=== PATIENT | female | born 1945 | race Two or more races ===

== ENCOUNTER 2023-09-29 13:26 | Emergency (ER) | payer OTHER ==
[~2023-09-29] VITALS: Ht 154.9 cm; Wt 67.2 kg
[2023-09-29 15:01] VITALS: BP 161/90; PULSE 93; RESP 16; TEMP 98.2; O2SAT 97
[2023-09-29] MEDS ORDERED: ACETAMINOPHEN 325 MG TAB PO ONE (16:30)
== END 2023-09-29 16:19 | disposition home or self-care (01) ==
LOC: ER 13:26
DX: S00.83XA Contusion of other part of head, initial encounter (principal); I10 Essential (primary) hypertension; Z88.2 Allergy status to sulfonamides; W18.12XA Fall from or off toilet with subsequent striking against object, initial encounter; Y93.89 Activity, other specified; Y92.091 Bathroom in other non-institutional residence as the place of occurrence of the external cause; Y99.8 Other external cause status
CPT/HCPCS: 70450; 70486

== ENCOUNTER 2024-09-10 11:38 | Emergency (ER) | payer OTHER ==
[~2024-09-10] VITALS: Ht 154.9 cm; Wt 62.0 kg
[2024-09-10 15:20] VITALS: BP 177/86; PULSE 53; RESP 16; TEMP 98.5; O2SAT 97
== END 2024-09-10 15:24 | disposition home or self-care (01) ==
LOC: EDBD 11:38 → ER 11:38
DX: S23.3XXA Sprain of ligaments of thoracic spine, initial encounter (principal); S43.402A Unspecified sprain of left shoulder joint, initial encounter; S73.102A Unspecified sprain of left hip, initial encounter; I12.9 Hypertensive chronic kidney disease with stage 1 through stage 4 chronic kidney disease, or unspecified chronic kidney disease; N18.30 Chronic kidney disease, stage 3 unspecified; E78.5 Hyperlipidemia, unspecified; Z88.2 Allergy status to sulfonamides; W18.09XA Striking against other object with subsequent fall, initial encounter; Y93.89 Activity, other specified; Y92.89 Other specified places as the place of occurrence of the external cause; Y99.8 Other external cause status
CPT/HCPCS: 72128; 73030; 73060; 73502; 93005

== ENCOUNTER 2025-03-10 03:00 | Inpatient (IN) | payer OTHER ==
[~2025-03-10] VITALS: Ht 154.9 cm; Wt 61.2 kg
[2025-03-10 04:06] LABS: Basophils # (auto) 0.1 10 ^3/uL (0-0.2); Eosinophils # (auto) 0.1 10 ^3/uL (0-0.8); Eosinophils % (auto) 1.5 % (0.0-7.0); Hematocrit 39.2 % (36.0-46.0); Hemoglobin 13.4 g/dL (12.2-16.2); Lymphocytes # (auto) 1.3 10 ^3/uL (0.4-5.4); Lymphocytes % (auto) 19.3 % (10.0-50.0); Mean Corpuscular Hgb Conc. 34.1 g/dL (32.0-36.0); Mean Corpuscular Volume 96.8 fL (80.0-100.0); Monocytes # (auto) 0.5 10 ^3/uL (0-1.3); Monocytes % (auto) 7.8 % (0.0-12.0); Neutrophils # (auto) 4.8 10 ^3/uL (1.6-8.6); Neutrophils % (auto) 70.4 % (37.0-80.0); Platelet Count (auto) 201 10^3/uL (140-450); Red Blood Cells 4.05 10^6/uL (4.0-5.20); Red Cell Distribution Width 15.8 % (11.8-14.3); White Blood Cell 6.8 10^3/uL (4.4-10.8)
--- NOTE | 2025-03-10 04:06 | ED.PDOC ---
History of Present Illness HPI Comments 79-year-old female keep to ER via EMS for high blood pressure. , Per , patient made have dementia. Patient has poor compliance to her doctor. Denies any medical problems. Had an argument with her earlier and she walked out. Seen by police department wandering around. Patient still appear confused at this time. She complaining of left ankle pain. Blood pressure on scene was 190'/100 mmHg. Chief Complaint: High Blood Pressure Time Seen by MD: 04:05 Primary Care Provider: NONE Reviewed Notes: Nurses Notes Allergies: Coded Allergies: Sulfa Antibiotics (Verified Allergy, Severe, 09/29/23) Information Source: Patient Mode of Arrival: EMS Severity: Moderate Timing: Hours Duration: Since onset Review of Systems REVIEW OF SYSTEMS: (+) patient confused and disoriented No fever, no chills, or fatigue HEENT: No sore throat, no earache, no congestion, no neck pain. Cardiac: No chest pain. No palpitations. Lungs: No shortness of breath, no cough. GI: No nausea, no vomiting, no diarrhea, no constipation, no abdominal pain : No dysuria, frequency, or urgency. No hematuria. Musculoskeletal: No joint pain , no joint swelling, no extremity edema. Skin: No rash, no itching. Neuro: No headache, no dizziness, no weakness Vital Signs Vital Signs Date Time Temp Pulse Resp B/P (MAP) Pulse Ox O2 Delivery O2 Flow Rate FiO2 03/10/25 04:06 79 03/10/25 03:40 98.6 10 114/61 (78) 98 98.6 03/10/25 03:25 Room Air* 0 21 Physical Exam General: Awake, alert and oriented. No acute distress. Skin: Skin in warm, dry and intact. Appropriate color for ethnicity. Nailbeds pink with no cyanosis. HEENT: The head is normocephalic and atraumatic. Conjunctivae are clear without exudates or hemorrhage. Sclera is non-icteric. EOM are intact. No signs of nystagmus. Eyelids are normal in appearance without swelling or lesions. Oral mucosa is pink and moist Neck: The neck is supple with normal range of motion. No JVD. Cardiac: Heart rate and rhythm are normal. No murmurs, gallops, or rubs are auscultated. Respiratory: No signs of respiratory distress. Lung sounds are clear in all lobes bilaterally without rales, rhonchi, or wheezes. Abdominal: Abdomen is soft, non-tender without distention. Bowel sounds are present and normoactive in all four quadrants. Extremities: Upper and lower extremities are atraumatic in appearance without deformity or edema. Neurological: The patient is awake, alert and oriented to person, only with normal speech. Speech is clear. There is no facial asymmetry. Normal ygrydy-cm-opbm test. Normal strength. Psychiatric: Appropriate mood and affect.. No visual or auditory hallucinations. Past Medical History PAST MEDICAL HISTORY: High Lipids, HTN, Thyroid Surgical History: Denies all surgeries CONTENT DEVELOPMENT MANAGER History: No Pertinent CONTENT DEVELOPMENT MANAGER History Family History Family History: Reviewed,noncontributory to illness, Unknown Social History Smoker: Non-Smoker Alcohol: Denies ETOH Use Drugs: Denies Drug Use Lives In: Home Was a procedure done? Was a procedure done?: No EKG EKG : Pulse Rate (adult): 79 [place]: LAD Cardiac Rhythm: NSR Comments No STEMI Differential Dx Considerations may include: Anemia, electrolyte imbalance, dementia, dehydration, X-Ray, Labs, Meds, VS Vital Signs Date Time Temp Pulse Resp B/P (MAP) Pulse Ox O2 Delivery O2 Flow Rate FiO2 03/10/25 04:06 79 03/10/25 03:40 98.6 71 10 114/61 (78) 98 98.6 03/10/25 03:25 Room Air* 0 21 03/10/25 03:00 98.2 90 18 190/100 (130) 97 98.2 Lab Test 03/10/25 04:23 03/10/25 03:53 03/10/25 03:50 Range/Units Urine Color Yellow Yellow Urine Clarity Clear Clear Urine pH 6.0 5.0-9.0 Urine Specific [place] 1.031 1.001-1.035 Urine Protein Trace H Negative Urine Ketones Negative Negative Urine Blood Negative Negative /uL Urine Nitrite Negative Negative Urine Bilirubin Negative Negative Urine Urobilinogen Normal Negative mg/dL Urine Leukocyte Esterase 1+ Negative /uL Urine RBC 2 0 - 4 /hpf Urine Microscopic WBC 5 0-5 /HPF Urine Squamous Epithelial Cells Few <5 /hpf Urine Bacteria None seen None Seen /hpf Urine Hyaline Casts Few 0 - 2 /lpf Urine Mucus Few None Seen Urine Glucose Normal Normal mg/dL Urine Opiates Screen Neg NEGATIVE Urine Fentanyl Screen Neg NEGATIVE Urine Barbiturates Screen Neg NEGATIVE Urine Phencyclidine Screen Neg NEGATIVE Urine Amphetamines Screen Neg NEGATIVE Urine Benzodiazepines Screen Neg NEGATIVE Urine Cocaine Screen Neg NEGATIVE Urine Cannabinoids Screen Neg NEGATIVE White Blood Count 6.8 4.4-10.8 10^3/uL Red Blood Count 4.05 4.0-5.20 10^6/uL Hemoglobin 13.4 12.2-16.2 g/dL Hematocrit 39.2 36.0-46.0 % Mean Corpuscular Volume 96.8 80.0-100.0 fL Mean Corpuscular Hemoglobin 33.0 H 28.0-32.0 pg Mean Corpuscular Hemoglobin Concent 34.1 32.0-36.0 g/dL Red Cell Distribution Width 15.8 H 11.8-14.3 % Platelet Count 201 140-450 10^3/uL Mean Platelet Volume 8.1 6.9-10.8 fL Neutrophils (%) (Auto) 70.4 37.0-80.0 % Lymphocytes (%) (Auto) 19.3 10.0-50.0 % Monocytes (%) (Auto) 7.8 0.0-12.0 % Eosinophils (%) (Auto) 1.5 0.0-7.0 % Basophils (%) (Auto) 1.0 0.0-2.0 % Neutrophils # (Auto) 4.8 1.6-8.6 10 ^3/uL Lymphocytes # (Auto) 1.3 0.4-5.4 10 ^3/uL Monocytes # (Auto) 0.5 0-1.3 10 ^3/uL Eosinophils # (Auto) 0.1 0-0.8 10 ^3/uL Basophils # (Auto) 0.1 0-0.2 10 ^3/uL Nucleated Red Blood Cells 0.0 % Sodium Level 145 136-145 mmol/L Potassium Level 3.4 L 3.5-5.1 mmol/L Chloride Level 110 H 98-107 mmol/L Carbon Dioxide Level 25 20-31 mmol/L Anion Gap 10 5-15 Blood Urea Nitrogen 19 9-23 mg/dL Creatinine 1.23 H 0.550-1.02 mg/dL Glomerular Filtration Rate Calc 45 >90 mL/min BUN/Creatinine Ratio 15.4 10.0-20.0 Serum Glucose 97 74-106 mg/dL Lactic Acid Level 1.3 0.4-2.0 mmol/L Calcium Level 10.2 8.7-10.4 mg/dL Total Bilirubin 1.0 0.2-1.0 mg/dL Aspartate Amino Transferase (AST) 17 13-40 U/L Alanine Aminotransferase (ALT) 10 7-40 U/L Alkaline Phosphatase 65 46-116 U/L Troponin I High Sensitivity 4 </=34 ng/L B-Type Natriuretic Peptide 18.51 0-100 pg/mL Total Protein 6.9 5.7-8.2 g/dL Albumin 4.7 3.2-4.8 g/dL Thyroid Stimulating Hormone (TSH) Pending Plasma/Serum Blood Alcohol < 3.0 <10 mg/dL POC Glucose 88 70-106 mg/dl Current Medications Medications (Trade) Dose Ordered Sig/Bisi Route Start Time Stop Time Status Last Admin Sodium Chloride 1,000 ml @ 1,000 mls/hr Q1H ONCE IV 03/10/25 05:30 03/10/25 06:29 03/10/25 05:23 Acetaminophen (Tylenol Tablet) 650 mg ONCE ONCE PO 03/10/25 05:30 03/10/25 05:31 DC 03/10/25 05:33 Potassium Chloride (Klor-Con Tablet) 40 meq ONCE ONCE PO 03/10/25 05:45 03/10/25 05:46 DC 03/10/25 05:52 Images Reviewed?: Images reviewed and evaluated by me (Independent interpretation: Left ankle x-ray no acute fracture) Time of 1ST Reevaluation: 03:45 Reevaluation 1ST: Unchanged Patient Education/Counseling: Diagnosis, Treatment Family Education/Counseling: No Family Present Departure 1 Departure Time of Disposition: 05:20 Impression: Primary Impression: Altered mental status Disposition: 09 ADMITTED INPATIENT Condition: Stable Comments 79-year-old female with past medical history hyperlipidemia, hypertension, thyroid disorder presents to the emergency department with altered mental status, workup reveals ROSALEE. Focal neuro deficit on exam. CT head negative for acute process. IV fluids administered in the ED. Patient admitted for further treatment, evaluation and monitoring. Extensive evaluation was performed in attempt to identify or rule out: (See differential diagnosis section) The following tests were ordered, and results were reviewed by me and discussed with patient: (See diagnostic results section) The following test were independently interpreted by me: EKG, chest x-ray I reviewed and agreed with the following test results read by other providers: Chest x-ray I reviewed the following notes from the pt's past medical encounters: Encounter 08/2024 for fall Additional information was gathered from interviewing the following independent historians: Patient's at bedside Discussion of management or test interpretation with external physician/other qualified health nanny caregiver: N/A Addressed an acute or chronic illness that poses a threat to life or bodily function: Altered mental status, Decision regarding hospitalization or escalation of hospital level of care: Risk and benefits of admission for further treatment of patient's condition was considered. Due to patient's current clinical condition, high risk of decline and poor outcome if discharged and need for further inpatient management and monitoring, patient will be admitted to the hospital. Discussed with patient. Drug therapy requiring intensive monitoring for toxicity: N/A Parenteral controlled substances: N/A Decision regarding elective major surgery with identified patient or procedure risk factors: N/A Decision regarding emergency major surgery: N/A Decision not to resuscitate or to de-escalate care because of poor prognosis: N/A Diagnosis or treatment significantly limited by social determinants of health: N/A Critical Care Note Critical Care Time?: No Stability Stability form required: No Heart Score Heart Score: Heart Score Response (Comments) Value History N/A 0 EKG N/A 0 Age N/A 0 Risk Factors N/A 0 Troponin N/A 0 Total 0 I personally scribed for DUNCAN ALLISON MD ([employer]) on 03/10/25 at 04:06. Electronically submitted by Shane Johnson ([employer]). I personally scribed for DUNCAN ALLISON MD ([employer]) on 03/10/25 at 04:07. Electronically submitted by Shane Johnson ([employer]). DUNCAN ALLISON MD Mar 10, 2025 04:06
[2025-03-10 04:23] LABS: Alanine Aminotransferase 10 U/L (7-40); Albumin 4.7 g/dL (3.2-4.8); Alkaline Phosphatase 65 U/L (46-116); Anion Gap 10 (5-15); Aspartate Aminotransferase 17 U/L (13-40); BUN/Creatinine Ratio 15.4 (10.0-20.0); Blood Urea Nitrogen 19 mg/dL (9-23); Calcium 10.2 mg/dL (8.7-10.4); Carbon Dioxide 25 mmol/L (20-31); Glucose 97 mg/dL (74-106); Sodium 145 mmol/L (136-145); Total Protein 6.9 g/dL (5.7-8.2)
[2025-03-10 04:25] LABS: Urine Bacteria None Seen /hpf (None Seen)
[2025-03-10 04:27] LABS: Chloride 110 mmol/L (98-107); Potassium 3.4 mmol/L (3.5-5.1)
[2025-03-10 04:53] LABS: Amphetamine Screen, Urine Neg (NEGATIVE); Barbiturate Scree,Urine Neg (NEGATIVE); Benzodiazephine Screen, Urine Neg (NEGATIVE); Cannabinoid Screen, Urine Neg (NEGATIVE); Cocaine Screen, Urine Neg (NEGATIVE); Opiate Scree,Urine Neg (NEGATIVE); Phencyclidine Screen, Urine Neg (NEGATIVE)
--- NOTE | 2025-03-10 04:53 | ECG ---
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
[2025-03-10 05:06] LABS: Urine Blood Negative /uL (Negative); Urine Clarity Clear (Clear); Urine Color Yellow (Yellow); Urine Hyaline Cast FEW /lpf (0 - 2); Urine Mucus FEW (None Seen); Urine Protein, UAD TRACE (Negative); Urine Specific Gravity 1.031 (1.001-1.035); Urine Squamous Epithelial Cell FEW /hpf (<5); Urine Urobilinogen Normal (Negative); Urine WBC 5 /HPF (0-5)
--- NOTE | 2025-03-10 05:09 | DVH ---
EXAM: CT HEAD WITHOUT CONTRAST INDICATION: ALOC TECHNIQUE: CT of the head without intravenous contrast. Radiation Dose : 1. Head: CT Dose: CTDI volume is 53.6 mGy. Dose-length product is 948.6 mGy*cm The dose indicators for CT are the volume Computed Tomography (CT) Dose Index (CTDIvol) and the Dose Length Product (DLP), and are measured in units of mGy and mGy-cm, respectively. These indicators are not patient dose, but values generated from the CT scanner acquisition factors. The report includes radiation exposure data for exposures received during this examination. COMPARISON: CT HEAD WITHOUT CONTRAST on DOS: 09/29/23 FINDINGS: There is no evidence of acute intracranial hemorrhage, extra-axial collection, mass effect, midline s hift, herniation or hydrocephalus. The ventricles, sulci and cisterns are age appropriate. The ledesma-white differentiation is intact. Patchy periventricular and subcortical white matter hypoattenuation is nonspecific but may be related to small vessel ischemic disease. The visualized paranasal sinuses and mastoid air cells are clear. The surrounding soft tissues and osseous structures are unremarkable. IMPRESSION: No acute intracranial abnormality.
--- NOTE | 2025-03-10 05:13 | DVH ---
EXAM: XY CHEST XRAY 1 VIEW Indication: CP Technique: Single frontal view of the chest was obtained Comparison: None FINDINGS: Lines and Tubes: None Lungs: No focal consolidation. Pleura: No effusion. No pneumothorax. Cardiomediastinal contours: Unremarkable Bones: No acute osseous abnormality. IMPRESSION: No acute cardiopulmonary disease.
[2025-03-10] MEDS: SODIUM CHLORIDE 0.9% 1,000 ML IV ONE (05:23)
[2025-03-10] MEDS: ACETAMINOPHEN 325 MG TAB PO ONE (05:33)
[2025-03-10] MEDS: POTASSIUM CHL 20 Meq TABLET PO ONE (05:52)
--- NOTE | 2025-03-10 06:05 | DVH ---
EXAM: XR Left Ankle Complete, 3 or More Views CLINICAL INDICATION: Left ankle pain TECHNIQUE: Frontal, lateral and oblique views of the left ankle. COMPARISON: None FINDINGS: BONES/JOINTS: Fixation screws of the distal fibula. SOFT TISSUES: Soft tissue swelling without acute fracture. OTHER FINDINGS: . IMPRESSION: 1. Soft tissue swelling without acute fracture. 2. If symptoms persist, further evaluation with CT is recommended.
[2025-03-10] MEDS ORDERED: ONDANSETRON HCL 4 MG/2 ML VIAL IV PRN (06:45)
[2025-03-10] MEDS ORDERED: AMLO1TAB23 PO (06:58)
[2025-03-10] MEDS ORDERED: LEVO150T10 PO (06:58)
[2025-03-10] MEDS ORDERED: ESCI1TAB36 PO (06:58)
[2025-03-10] MEDS ORDERED: ERGO1CAP12 PO (06:58)
[2025-03-10] MEDS ORDERED: PRAV20TA3 (06:58)
[2025-03-10] MEDS ORDERED: MET25T PO (06:58)
[2025-03-10] MEDS ORDERED: ERGOCALCIFEROL 50,000 UNIT(1.25MG) CAP PO SCH (07:00)
--- NOTE | 2025-03-10 07:14 | DVHHP2 ---
History of Present Illness Reason for Visit: Left heel pain History of Present Illness Lenore Caceres is a 71-year-old female with past medical history of hypertension, hyperlipidemia, dementia, thyroid disease, right hand surgery, bilateral cataract surgery who presents to the ED with left heel pain. Per reports patient's stated that she was wandering around after leaving the hotel and was found thereafter. Patient unable to tell me what happened and that period of time but she does report that they removing into a new house. Patient denies any chest pain, shortness of breath, fever, chills homelessness, weakness, dizziness, abdominal pain, nausea, vomiting, diarrhea, or urinary symptoms. Cardiovascular: HTN, hyperipidemia POLICE DISPATCHER: Dementia Endocrine: Hypothyroidism Past Surgical History: Other (Right hand surgery and bilateral cataract surgery) Family History: Other (Both parents ) Smoke: No ALCOHOL: none Drugs: None Lives: with Family Domestic Violence: Neg Review of Systems Musculoskeletal: foot pain Allergies: Coded Allergies: Sulfa Antibiotics (Verified Allergy, Severe, 09/29/23) Medications Current Medications Medications Dose Ordered Sig/Bisi Route Start Time Stop Time Status Last Admin Dose Admin Ondansetron HCl 4 mg Q4HP PRN IV 03/10/25 06:45 UNV Enoxaparin Sodium 40 mg DAILY SC 03/10/25 10:00 UNV Exam Vital Signs Vital Signs Date Time Temp Pulse Resp B/P (MAP) Pulse Ox O2 Delivery O2 Flow Rate FiO2 03/10/25 06:00 97.8 70 12 159/84 (109) 99 97.8 03/10/25 03:25 Room Air* 0 21 General Appearance: Alert, Oriented X3, Cooperative, No acute distress HEENT: Atraumatic, PERRLA, EOMI, Mucous membr. moist/pink Respiratory: Clear to auscultation, Normal air movement Cardiovascular: Regular rate, Normal S1, Normal S2, No murmurs Abdominal: Normal bowel sounds, Soft, No tenderness, No hepatospenomegaly, No masses Extremities: No clubbing, No cyanosis, Normal pulses Skin: No significant lesion Neuro: Normal speech, Normal tone, Sensation intact Psych/Mental Status: Mental status NL, Mood NL Labs/Xrays Labs Test 03/10/25 04:23 03/10/25 03:53 03/10/25 03:50 Range/Units Urine Color Yellow Yellow Urine Clarity Clear Clear Urine pH 6.0 5.0-9.0 Urine Specific [place] 1.031 1.001-1.035 Urine Protein Trace H Negative Urine Ketones Negative Negative Urine Blood Negative Negative /uL Urine Nitrite Negative Negative Urine Bilirubin Negative Negative Urine Urobilinogen Normal Negative mg/dL Urine Leukocyte Esterase 1+ Negative /uL Urine RBC 2 0 - 4 /hpf Urine Microscopic WBC 5 0-5 /HPF Urine Squamous Epithelial Cells Few <5 /hpf Urine Bacteria None seen None Seen /hpf Urine Hyaline Casts Few 0 - 2 /lpf Urine Mucus Few None Seen Urine Glucose Normal Normal mg/dL Urine Opiates Screen Neg NEGATIVE Urine Fentanyl Screen Neg NEGATIVE Urine Barbiturates Screen Neg NEGATIVE Urine Phencyclidine Screen Neg NEGATIVE Urine Amphetamines Screen Neg NEGATIVE Urine Benzodiazepines Screen Neg NEGATIVE Urine Cocaine Screen Neg NEGATIVE Urine Cannabinoids Screen Neg NEGATIVE White Blood Count 6.8 4.4-10.8 10^3/uL Red Blood Count 4.05 4.0-5.20 10^6/uL Hemoglobin 13.4 12.2-16.2 g/dL Hematocrit 39.2 36.0-46.0 % Mean Corpuscular Volume 96.8 80.0-100.0 fL Mean Corpuscular Hemoglobin 33.0 H 28.0-32.0 pg Mean Corpuscular Hemoglobin Concent 34.1 32.0-36.0 g/dL Red Cell Distribution Width 15.8 H 11.8-14.3 % Platelet Count 201 140-450 10^3/uL Mean Platelet Volume 8.1 6.9-10.8 fL Neutrophils (%) (Auto) 70.4 37.0-80.0 % Lymphocytes (%) (Auto) 19.3 10.0-50.0 % Monocytes (%) (Auto) 7.8 0.0-12.0 % Eosinophils (%) (Auto) 1.5 0.0-7.0 % Basophils (%) (Auto) 1.0 0.0-2.0 % Neutrophils # (Auto) 4.8 1.6-8.6 10 ^3/uL Lymphocytes # (Auto) 1.3 0.4-5.4 10 ^3/uL Monocytes # (Auto) 0.5 0-1.3 10 ^3/uL Eosinophils # (Auto) 0.1 0-0.8 10 ^3/uL Basophils # (Auto) 0.1 0-0.2 10 ^3/uL Nucleated Red Blood Cells 0.0 % Sodium Level 145 136-145 mmol/L Potassium Level 3.4 L 3.5-5.1 mmol/L Chloride Level 110 H 98-107 mmol/L Carbon Dioxide Level 25 20-31 mmol/L Anion Gap 10 5-15 Blood Urea Nitrogen 19 9-23 mg/dL Creatinine 1.23 H 0.550-1.02 mg/dL Glomerular Filtration Rate Calc 45 >90 mL/min BUN/Creatinine Ratio 15.4 10.0-20.0 Serum Glucose 97 74-106 mg/dL Lactic Acid Level 1.3 0.4-2.0 mmol/L Calcium Level 10.2 8.7-10.4 mg/dL Total Bilirubin 1.0 0.2-1.0 mg/dL Aspartate Amino Transferase (AST) 17 13-40 U/L Alanine Aminotransferase (ALT) 10 7-40 U/L Alkaline Phosphatase 65 46-116 U/L Troponin I High Sensitivity 4 </=34 ng/L B-Type Natriuretic Peptide 18.51 0-100 pg/mL Total Protein 6.9 5.7-8.2 g/dL Albumin 4.7 3.2-4.8 g/dL Plasma/Serum Blood Alcohol < 3.0 <10 mg/dL POC Glucose 88 70-106 mg/dl EXAM: CT HEAD WITHOUT CONTRAST INDICATION: ALOC TECHNIQUE: CT of the head without intravenous contrast. Radiation Dose : 1. Head: CT Dose: CTDI volume is 53.6 mGy. Dose-length product is 948.6 mGy*cm The dose indicators for CT are the volume Computed Tomography (CT) Dose Index (CTDIvol) and the Dose Length Product (DLP), and are measured in units of mGy and mGy-cm, respectively. These indicators are not patient dose, but values generated from the CT scanner acquisition factors. The report includes radiation exposure data for exposures received during this examination. COMPARISON: CT HEAD WITHOUT CONTRAST on DOS: 09/29/23 FINDINGS: There is no evidence of acute intracranial hemorrhage, extra-axial collection, mass effect, midline shift, herniation or hydrocephalus. The ventricles, sulci and cisterns are age appropriate. The ledesma-white differentiation is intact. Patchy periventricular and subcortical white matter hypoattenuation is nonspecific but may be related to small vessel ischemic disease. The visualized paranasal sinuses and mastoid air cells are clear. The surrounding soft tissues and osseous structures are unremarkable. IMPRESSION: No acute intracranial abnormality. EXAM: XR Left Ankle Complete, 3 or More Views CLINICAL INDICATION: Left ankle pain TECHNIQUE: Frontal, lateral and oblique views of the left ankle. COMPARISON: None FINDINGS: BONES/JOINTS: Fixation screws of the distal fibula. SOFT TISSUES: Soft tissue swelling without acute fracture. OTHER FINDINGS: . IMPRESSION: 1. Soft tissue swelling without acute fracture. 2. If symptoms persist, further evaluation with CT is recommended. EXAM: XY CHEST XRAY 1 VIEW Indication: CP Technique: Single frontal view of the chest was obtained Comparison: None FINDINGS: Lines and Tubes: None Lungs: No focal consolidation. Pleura: No effusion. No pneumothorax. Cardiomediastinal contours: Unremarkable Bones: No acute osseous abnormality. IMPRESSION: No acute cardiopulmonary disease. Assessment/Plan Assessment/Plan Assessment Left heel pain UTI Hypokalemia ROSALEE Hypertensive urgency History of hypertension History of hyperlipidemia History of dementia History of hypothyroidism History of right hand surgery History of bilateral cataract surgery Plan Admit to [facility] kassandra Antipyretics Pain management IV antibiotics-ceftriaxone Antiemetics NS 1 L given ED TSH CT head noted Chest x-ray UA Troponin noted Trazodone UDS BNP CT left ankle Home medications reconciled DVT prophylaxis-Lovenox PUD prophylaxis-Protonix Discussed plan of care with patient and nurse Plan discussed with: Patient My Orders Orders - NORMA CALL COMPENSATION ADMINISTRATOR Procedure Category Date Status Time Admit ADMIT 03/10/25 Transmitted 06:43 Allergies HUDSON 03/10/25 In Process 06:43 Code Status CODE 03/10/25 Transmitted 06:43 Ondansetron Hcl PHA 03/10/25 Logged (Zofran) 06:45 Enoxaparin Sodium PHA 03/10/25 Logged (Lovenox) 10:00 Complete Blood Count LAB 03/11/25 Verified 04:00 Comprehensive LAB 03/11/25 Verified Metabolic Panel 04:00 Cardiac DIET 03/10/25 Transmitted Diet-2gna,Lofat,Lochol Breakfast Ergocalciferol PHA 03/10/25 Transmitted (Vitamin D 50,000 07:00 Metoprolol Tartrate PHA 03/10/25 Transmitted Tablet (Lopressor Ta 10:00 Pravastatin Sodium PHA 03/10/25 Transmitted Tablet (Pravachol Tab 10:00 (Nf) Amlodipine PHA 03/10/25 Transmitted Besylate 10:00 (Nf) Escitalopram PHA 03/10/25 Transmitted Oxalate 10:00 (Nf) Levothyroxine PHA 03/10/25 Transmitted Sodium 10:00 Date of Service: Mar 10, 2025 Billing Provider: NORMA CALL Common Visit Codes: [id number] INP/OBS CARE (HIGH) NORMA CALL Mar 10, 2025 07:14
[2025-03-10 07:45] VITALS: PULSE 81; RESP 15; O2SAT 98
--- NOTE | 2025-03-10 09:54 | DVH ---
INDICATION: left ankle pain COMPARISON: None TECHNIQUE: CT of the left ankle was performed without contrast. Volume transverse images were obtaine d and reconstructed in multiple planes using bone and soft tissue algorithms. Radiation Dose Information: CT Dose: CTDI volume is 7.75 mGy. Dose-length product is 155.49 mGy*cm FINDINGS: The alignment is normal. The joint spaces are normal. There is no fracture, dislocation or aggressive osseous lesion. There is no joint effusion. The soft tissues are normal. Surgical screw fixation of the distal fibula. IMPRESSION: No acute fracture or dislocation. All CT scans at this medical facility are performed using dose modulation techniques as appropriate t o a performed exam including the following: Automated exposure control was utilized; adjustment of th e MA and/or KV according to patient size; and use of iterative reconstruction technique.
[2025-03-10] MEDS: CITALOPRAM HYDROBR 20 MG TAB PO SCH (09:55)
[2025-03-10] MEDS: LEVOTHYROXINE SODIUM 50 MCG TAB PO SCH (09:55)
[2025-03-10] MEDS: ENOXAPARIN SOD 40 MG/0.4 ML SYRINGE SC SCH (09:55)
[2025-03-10] MEDS: PANTOPRAZOLE 40 MG/10 ML VIAL INJ IV SCH (09:56)
[2025-03-10] MEDS: amLODIPine BESYLATE 5 MG TAB PO SCH (09:56)
[2025-03-10] MEDS: diphenhdrAMINE HCL 50 MG/1 ML VL IV ONE (09:56)
[2025-03-10] MEDS: cefTRIAXone 1GM/50ML D5W 50 ML IV SCH (09:57)
[2025-03-10] MEDS ORDERED: PRAVASTATIN SODIUM 20 MG TAB PO SCH (10:00)
[2025-03-10] MEDS: METOPROLOL TARTRATE 25 MG TAB PO ONE (11:32)
[2025-03-10] MEDS: LORazepam 2MG/ML-1ML VIAL IV ONE (11:32)
[2025-03-10] MEDS: HALOPERIDOL LACTATE 5 MG/ML INJ VIAL IM ONE (14:52)
[2025-03-10 19:45] VITALS: PULSE 67; RESP 16; O2SAT 97
[2025-03-10 22:13] VITALS: PULSE 68
[2025-03-10] MEDS: METOPROLOL TARTRATE 25 MG TAB PO SCH (22:52)
[2025-03-10] MEDS: PRAVASTATIN SODIUM 20 MG TAB PO SCH (22:53)
[2025-03-10 23:15] VITALS: BP 168/100; PULSE 71; PULSE 97; RESP 16; RESP 17; TEMP 97.4; TEMP 97.9; O2SAT 100; O2SAT 96
[2025-03-11] VITALS (8 sets, daily range): BP systolic 110–161; BP diastolic 66–92; PULSE 58–71; RESP 16–18; TEMP 97.5–98.3; O2SAT 94–97
[2025-03-11] MEDS: cloNIDine HCL 0.1 MG TAB PO ONE (02:30)
[2025-03-11] MEDS: LEVOTHYROXINE SODIUM 50 MCG TAB PO SCH (06:45)
[2025-03-11 07:25] LABS: Alanine Aminotransferase 11 U/L (7-40); Albumin 4.1 g/dL (3.2-4.8); Alkaline Phosphatase 58 U/L (46-116); Anion Gap 8 (5-15); Aspartate Aminotransferase 18 U/L (13-40); BUN/Creatinine Ratio 11.8 (10.0-20.0); Blood Urea Nitrogen 12 mg/dL (9-23); Calcium 9.2 mg/dL (8.7-10.4); Carbon Dioxide 26 mmol/L (20-31); Glucose 98 mg/dL (74-106); Potassium 3.8 mmol/L (3.5-5.1); Sodium 142 mmol/L (136-145)
[2025-03-11 07:26] LABS: Basophils # (auto) 0 10 ^3/uL (0-0.2); Basophils % (auto) 0.8 % (0.0-2.0); Eosinophils # (auto) 0.2 10 ^3/uL (0-0.8); Eosinophils % (auto) 3.4 % (0.0-7.0); Hematocrit 39.9 % (36.0-46.0); Hemoglobin 12.9 g/dL (12.2-16.2); Lymphocytes % (auto) 18.5 % (10.0-50.0); Mean Corpuscular Hemoglobin 31.3 pg (28.0-32.0); Mean Corpuscular Hgb Conc. 32.4 g/dL (32.0-36.0); Mean Corpuscular Volume 96.6 fL (80.0-100.0); Monocytes # (auto) 0.4 10 ^3/uL (0-1.3); Monocytes % (auto) 8.1 % (0.0-12.0); Neutrophils # (auto) 3.7 10 ^3/uL (1.6-8.6); Neutrophils % (auto) 69.2 % (37.0-80.0); Nucleated Red Blood Cells % 0.2 %; Platelet Count (auto) 208 10^3/uL (140-450); Red Blood Cells 4.13 10^6/uL (4.0-5.20); Red Cell Distribution Width 15.9 % (11.8-14.3); White Blood Cell 5.3 10^3/uL (4.4-10.8)
[2025-03-11 07:46] LABS: Chloride 108 mmol/L (98-107)
--- NOTE | 2025-03-11 11:28 | DVHPN2 ---
Subjective The patient is seen and examined at bedside. Complain of headache and ear pain. The patient is confused Reviewed: Care Plan, H&P, Labs, Medications, Previous Orders, Radiology Changes from previous H/P or p: No Changes Musculoskeletal: foot pain Objective Vitals Vital Signs Date Time Temp Pulse Resp B/P (MAP) Pulse Ox O2 Delivery O2 Flow Rate FiO2 03/11/25 05:00 98.3 66 17 148/76 (100) 97 98.3 03/10/25 23:15 Room Air* 0 21 Intake/Output Intake and Output 03/11/25 07:00 Intake Total 100 ml Output Total 600 ml Balance -500 ml Intake Oral 50 ml IV Total 50 ml Output Urine Total 600 ml General Appearance: Alert, mild distress HEENT: Atraumatic, PERRLA, EOMI, Mucous membr. moist/pink, Other (Erytherma on right ear canal.) Neck: Supple Lungs: Clear to auscultation, Normal air movement Cardiovascular: Regular rate, Normal S1, Normal S2, No murmurs, Gallops, Rubs Abdomen: Normal bowel sounds, Soft, No tenderness Neuro: Cranial nerves 3-12 NL Psych/Mental Status: Mental status NL Medications Current Medications Medications Dose Ordered Sig/Bisi Route Start Time Stop Time Status Last Admin Dose Admin Ondansetron HCl 4 mg Q4HP PRN IV 03/10/25 06:45 Enoxaparin Sodium 40 mg DAILY SC 03/10/25 10:00 03/10/25 09:55 40 MG Ergocalciferol 50,000 unit QWEEKLY PO 03/10/25 07:00 Metoprolol Tartrate 25 mg BID PO 03/10/25 22:00 03/10/25 22:52 25 MG Amlodipine Besylate 10 mg DAILY PO 03/10/25 10:00 03/10/25 09:56 10 MG Citalopram Hydrobromide 20 mg DAILY PO 03/10/25 10:00 03/10/25 09:55 20 MG Pantoprazole Sodium 40 mg DAILY IV 03/10/25 10:00 03/10/25 09:56 40 MG Ceftriaxone Sodium 50 ml @ 100 mls/hr DAILY@09 IV 03/10/25 09:00 03/10/25 09:57 100 MLS/HR Levothyroxine Sodium 150 mcg QAM PO 03/11/25 06:30 03/11/25 06:45 150 MCG Pravastatin Sodium 20 mg HS PO 03/10/25 22:00 03/10/25 22:53 20 MG Laboratory Results Laboratory Tests 03/11/25 06:14 Chemistry Test 03/11/25 06:14 Albumin 4.1 g/dL (3.2-4.8) Calcium Level 9.2 mg/dL (8.7-10.4) Total Protein 6.0 g/dL (5.7-8.2) LFT Test 03/11/25 06:14 Alanine Aminotransferase (ALT) 11 U/L (7-40) Alkaline Phosphatase 58 U/L (46-116) Aspartate Amino Transferase (AST) 18 U/L (13-40) Total Bilirubin 1.0 mg/dL (0.2-1.0) Urinalysis Test 03/10/25 04:23 Urine Color Yellow (Yellow) Urine Clarity Clear (Clear) Urine pH 6.0 (5.0-9.0) Urine Specific [place] 1.031 (1.001-1.035) Urine Protein Trace (Negative) H Urine Ketones Negative (Negative) Urine Blood Negative /uL (Negative) Urine Nitrite Negative (Negative) Urine Bilirubin Negative (Negative) Urine Urobilinogen Normal mg/dL (Negative) Urine Leukocyte Esterase 1+ /uL (Negative) Urine RBC 2 /hpf (0 - 4) Urine Microscopic WBC 5 /HPF (0-5) Urine Squamous Epithelial Cells Few /hpf (<5) Urine Bacteria None seen /hpf (None Seen) Urine Hyaline Casts Few /lpf (0 - 2) Urine Mucus Few (None Seen) Urine Glucose Normal mg/dL (Normal) Labs and/or images reviewed: Labs reviewed by me Assessment/Plan Assessment/Plan Acute encephalopathy Left heel pain Right ear pain, secondary to otitis media UTI Hypokalemia ROSALEE Hypertensive urgency History of hypertension History of hyperlipidemia History of dementia History of hypothyroidism History of right hand surgery History of bilateral cataract surgery Continuing current management. Continuing with IV antibiotic Rocephin. I a.m. going to give her ear drops with Cipro ear drops on bilateral ear for seven days. Continuing IV fluid. Continuing hypertensive medication. We will follow up with urine culture. Discussed with at bedside. This medical document was created using an electronic medical record system with [employer] computerized dictation system. Although this document has been carefully reviewed, there may still be some phonetic and typographical errors. These areas are purely typographical due to imperfections of the software programs, and do not reflect any compromise in the patient's medical care. Plan discussed with: Patient, Spouse Date of Service: Mar 11, 2025 Billing Provider: NADYA TAVERAS MD Common Visit Codes: [id number] INP/OBS CARE(HIGH) NADYA TAVERAS MD Mar 11, 2025 11:28
[2025-03-12 01:00] VITALS: BP 130/74; PULSE 72; RESP 18; TEMP 97.8; O2SAT 96
[2025-03-12 05:45] VITALS: BP 147/69; PULSE 66; RESP 18; TEMP 97.5; O2SAT 97
--- NOTE | 2025-03-12 11:37 | DVHPN2 ---
Subjective The patient is seen and examined at bedside. No complaint today. Patient however also wandering in her room and fell. The patient had some skin tear. Patient does have caregiver in the room but she refused to sit down in the bed. The patient did not hit her head. She also did not complain of any pain anywhere. Reviewed: Care Plan, H&P, Labs, Medications, Previous Orders, Radiology Changes from previous H/P or p: No Changes Musculoskeletal: foot pain Objective Vitals Vital Signs Date Time Temp Pulse Resp B/P (MAP) Pulse Ox O2 Delivery O2 Flow Rate FiO2 03/12/25 09:03 117/88 03/12/25 09:02 76 03/12/25 08:00 Room Air* 0 21 03/12/25 05:45 97.5 18 97 97.5 Intake/Output Intake and Output 03/12/25 06:59 Intake Total 510 ml Output Total 250 ml Balance 260 ml Intake Oral 460 ml IV Total 50 ml Output Urine Total 250 ml # Voids 1 # Bowel Movements 1 General Appearance: Alert, mild distress HEENT: Atraumatic, PERRLA, EOMI, Mucous membr. moist/pink Lungs: Clear to auscultation, Normal air movement Cardiovascular: Regular rate, Normal S1, Normal S2, No murmurs, Gallops, Rubs Abdomen: Normal bowel sounds, Soft, No tenderness Neuro: Cranial nerves 3-12 NL Psych/Mental Status: Mental status NL Medications Current Medications Medications Dose Ordered Sig/Bisi Route Start Time Stop Time Status Last Admin Dose Admin Ondansetron HCl 4 mg Q4HP PRN IV 03/10/25 06:45 Enoxaparin Sodium 40 mg DAILY SC 03/10/25 10:00 03/12/25 09:02 40 MG Ergocalciferol 50,000 unit QWEEKLY PO 03/10/25 07:00 Metoprolol Tartrate 25 mg BID PO 03/10/25 22:00 03/12/25 09:02 25 MG Amlodipine Besylate 10 mg DAILY PO 03/10/25 10:00 03/12/25 09:03 10 MG Citalopram Hydrobromide 20 mg DAILY PO 03/10/25 10:00 03/12/25 09:02 20 MG Pantoprazole Sodium 40 mg DAILY IV 03/10/25 10:00 4/13/25 09:01 40 MG Ceftriaxone Sodium 50 ml @ 100 mls/hr DAILY@09 IV 03/10/25 09:00 03/12/25 09:02 100 MLS/HR Levothyroxine Sodium 150 mcg QAM PO 03/11/25 06:30 03/12/25 06:48 150 MCG Pravastatin Sodium 20 mg HS PO 03/10/25 22:00 03/11/25 23:33 20 MG Laboratory Results Laboratory Tests 03/11/25 06:14 Urinalysis Test 03/10/25 04:23 Urine Color Yellow (Yellow) Urine Clarity Clear (Clear) Urine pH 6.0 (5.0-9.0) Urine Specific [place] 1.031 (1.001-1.035) Urine Protein Trace (Negative) H Urine Ketones Negative (Negative) Urine Blood Negative /uL (Negative) Urine Nitrite Negative (Negative) Urine Bilirubin Negative (Negative) Urine Urobilinogen Normal mg/dL (Negative) Urine Leukocyte Esterase 1+ /uL (Negative) Urine RBC 2 /hpf (0 - 4) Urine Microscopic WBC 5 /HPF (0-5) Urine Squamous Epithelial Cells Few /hpf (<5) Urine Bacteria None seen /hpf (None Seen) Urine Hyaline Casts Few /lpf (0 - 2) Urine Mucus Few (None Seen) Urine Glucose Normal mg/dL (Normal) Labs and/or images reviewed: Labs reviewed by me Assessment/Plan Assessment/Plan Acute encephalopathy Left heel pain UTI Hypokalemia ROSALEE Hypertensive urgency History of hypertension History of hyperlipidemia History of dementia History of hypothyroidism History of right hand surgery History of bilateral cataract surgery Continuing current management. Continuing with IV antibiotic Rocephin. Continuing IV fluid. Continuing hypertensive medication. We will follow up with urine culture. Discussed with at bedside. According to him ,he wanted to take her home to fly her to [place] because they moving there. However his cough broke down and he needs to fix prior to drive out to [place]. He concerned about her wandering because she had wandering out of the hotel. He want to talk with his son to see if he can find a plane ticket for her tonight to go to [place]. He , however can not handle her if he takes her back to her the hotel. He said he afraid she will disappear by wandering out of the hotel and will be missing. Discharge planning This medical document was created using an electronic medical record system with [employer] direct computerized dictation system. Although this document has been carefully reviewed, there may still be some phonetic and typographical errors. These areas are purely typographical due to imperfections of the software programs, and do not reflect any compromise in the patient's medical care. Plan discussed with: Patient My Orders Orders - NADYA TAVERAS MD Procedure Category Date Status Time Discontinue Tele HUDSON 03/11/25 In Process 13:43 Transfer Orders XFER 03/11/25 Transmitted 13:43 * Wound Consult CONS 03/12/25 Transmitted Date of Service: Mar 12, 2025 Billing Provider: NADYA TAVERAS MD Common Visit Codes: [id number] INP/OBS CARE(HIGH) NADYA TAVERAS MD Mar 12, 2025 11:37
[2025-03-12 13:00] VITALS: BP 128/84; PULSE 67; RESP 18; O2SAT 95
[2025-03-12 20:00] VITALS: PULSE 66; RESP 17; O2SAT 97
[2025-03-12 21:00] VITALS: BP 107/64; PULSE 67; RESP 18; TEMP 98.1; O2SAT 98
[2025-03-13] VITALS (7 sets, daily range): BP systolic 124–143; BP diastolic 67–87; PULSE 70–89; RESP 16–18; TEMP 97.6–98.6; O2SAT 94–99
[2025-03-13 07:00] LABS: Basophils # (auto) 0 10 ^3/uL (0-0.2); Basophils % (auto) 0.6 % (0.0-2.0); Eosinophils # (auto) 0.1 10 ^3/uL (0-0.8); Eosinophils % (auto) 1.9 % (0.0-7.0); Hematocrit 39.7 % (36.0-46.0); Hemoglobin 13.1 g/dL (12.2-16.2); Lymphocytes # (auto) 1.5 10 ^3/uL (0.4-5.4); Lymphocytes % (auto) 23.8 % (10.0-50.0); Mean Corpuscular Hgb Conc. 33.1 g/dL (32.0-36.0); Mean Corpuscular Volume 96.7 fL (80.0-100.0); Monocytes # (auto) 0.7 10 ^3/uL (0-1.3); Monocytes % (auto) 10.5 % (0.0-12.0); Neutrophils % (auto) 63.2 % (37.0-80.0); Nucleated Red Blood Cells % 0.1 %; Platelet Count (auto) 198 10^3/uL (140-450); Red Cell Distribution Width 15.8 % (11.8-14.3); White Blood Cell 6.4 10^3/uL (4.4-10.8)
[2025-03-13 07:19] LABS: Chloride 107 mmol/L (98-107); Potassium 3.6 mmol/L (3.5-5.1); Sodium 141 mmol/L (136-145)
[2025-03-13 07:20] LABS: Anion Gap 8 (5-15); Carbon Dioxide 26 mmol/L (20-31)
[2025-03-13 07:21] LABS: Calcium 9.5 mg/dL (8.7-10.4)
[2025-03-13 07:26] LABS: BUN/Creatinine Ratio 17.2 (10.0-20.0); Blood Urea Nitrogen 25 mg/dL (9-23); Glucose 91 mg/dL (74-106)
--- NOTE | 2025-03-13 11:06 | DVHPN2 ---
Reviewed: Care Plan, H&P, Labs, Medications, Previous Orders, Radiology Changes from previous H/P or p: No Changes General: Per HPI Musculoskeletal: foot pain Objective Vitals Vital Signs Date Time Temp Pulse Resp B/P (MAP) Pulse Ox O2 Delivery O2 Flow Rate FiO2 03/13/25 09:19 98.1 89 18 133/73 (93) 96 98.1 03/13/25 07:55 Room Air* 0 21 Intake/Output Intake and Output 03/13/25 07:00 Intake Total 700 ml Balance 700 ml Intake Oral 650 ml IV Total 50 ml # Voids 3 General Appearance: Alert, mild distress HEENT: Atraumatic, PERRLA, EOMI, Mucous membr. moist/pink Neck: Supple Lungs: Clear to auscultation, Normal air movement Cardiovascular: Regular rate, Normal S1, Normal S2, No murmurs, Gallops, Rubs Abdomen: Normal bowel sounds, Soft, No tenderness Neuro: Cranial nerves 3-12 NL Psych/Mental Status: Mental status NL Medications Current Medications Medications Dose Ordered Sig/Bisi Route Start Time Stop Time Status Last Admin Dose Admin Ondansetron HCl 4 mg Q4HP PRN IV 03/10/25 06:45 Enoxaparin Sodium 40 mg DAILY SC 03/10/25 10:00 03/13/25 09:19 40 MG Ergocalciferol 50,000 unit QWEEKLY PO 03/10/25 07:00 Metoprolol Tartrate 25 mg BID PO 03/10/25 22:00 03/13/25 09:15 25 MG Amlodipine Besylate 10 mg DAILY PO 03/10/25 10:00 03/13/25 09:16 10 MG Citalopram Hydrobromide 20 mg DAILY PO 03/10/25 10:00 03/13/25 09:15 20 MG Pantoprazole Sodium 40 mg DAILY IV 03/10/25 10:00 03/13/25 09:15 40 MG Ceftriaxone Sodium 50 ml @ 100 mls/hr DAILY@09 IV 03/10/25 09:00 03/13/25 09:15 100 MLS/HR Levothyroxine Sodium 150 mcg QAM PO 03/11/25 06:30 03/13/25 06:23 150 MCG Pravastatin Sodium 20 mg HS PO 03/10/25 22:00 03/11/25 23:33 20 MG Laboratory Results Laboratory Tests 4/14/25 06:15 Chemistry Test 03/13/25 06:15 Calcium Level 9.5 mg/dL (8.7-10.4) Urinalysis Test 03/10/25 04:23 Urine Color Yellow (Yellow) Urine Clarity Clear (Clear) Urine pH 6.0 (5.0-9.0) Urine Specific [place] 1.031 (1.001-1.035) Urine Protein Trace (Negative) H Urine Ketones Negative (Negative) Urine Blood Negative /uL (Negative) Urine Nitrite Negative (Negative) Urine Bilirubin Negative (Negative) Urine Urobilinogen Normal mg/dL (Negative) Urine Leukocyte Esterase 1+ /uL (Negative) Urine RBC 2 /hpf (0 - 4) Urine Microscopic WBC 5 /HPF (0-5) Urine Squamous Epithelial Cells Few /hpf (<5) Urine Bacteria None seen /hpf (None Seen) Urine Hyaline Casts Few /lpf (0 - 2) Urine Mucus Few (None Seen) Urine Glucose Normal mg/dL (Normal) Labs and/or images reviewed: Labs reviewed by me, Image(s) reviewed by me Assessment/Plan Assessment/Plan Acute encephalopathy Left heel pain UTI Hypokalemia ROSALEE Hypertensive urgency History of hypertension History of hyperlipidemia History of dementia History of hypothyroidism History of right hand surgery History of bilateral cataract surgery Continuing current management. Continuing with IV antibiotic Rocephin. Continuing IV fluid. Plan discussed with: Patient Date of Service: Mar 13, 2025 Billing Provider: DELON HUFF DO Common Visit Codes: [id number] INP/OBS CARE(HIGH) DELON HUFF DO Mar 13, 2025 11:06
--- NOTE | 2025-03-13 18:38 | DVHINCON2 ---
Date of service: Mar 13, 2025 Referring Physician Augie Butts MD Reason for Consultation ROSALEE History of Present Illness Lenore Caceres is a 71-year-old female with Past Medical History pertinent for Hypertension, Hyperlipidemia, Dementia and Thyroid disease who presented to the hospital with left heel pain. Per reports, patient's stated that she was wandering around after leaving the hotel and was found thereafter. No chest pain, shortness of breath, fever, chills homelessness, weakness, dizziness, abdominal pain, nausea, vomiting, diarrhea, or urinary symptoms. Patient's states he wants to fly her home to [place] because they are moving there, actively looking for flights. states he is afraid she will wander and disappear at the hotel. CT Head reported no acute acute intracranial abnormality. X-ray Left ankle reported soft tissue swelling without acute fracture. Chest x-ray is normal. Labs this morning are remarkable for elevated Creatinine 1.45 with BUN of 25. eGFR 37. Allergies: Coded Allergies: Sulfa Antibiotics (Verified Allergy, Severe, 09/29/23) Home Meds Reported Medications Escitalopram Oxalate (ESCITALOPRAM OXALATE) 10 Mg Tab, 1 TAB PO DAILY 03/10/25 Pravastatin Sodium (PRAVACHOL TABLET) 20 Mg Tb 03/10/25 Amlodipine Besylate (Amlodipine Besylate) 10 Mg Tab, 1 TAB PO DAILY 03/10/25 Ergocalciferol (Vitamin D) 50,000 Unit Cap, 1 CAP PO QWEEKLY 03/10/25 Metoprolol Tartrate (Lopressor) 25 Mg Tb, TAB PO 03/10/25 Levothyroxine Sodium (Levothyroxine Sodium) 150 Mcg Tab, 1 TAB PO DAILY 03/10/25 Family History: Patient reports no known family medical history. Review of Systems Unable to review: Dementia H&P Exam Vital Signs/I&O Vital Sign Date Time Temp Pulse Resp B/P (MAP) Pulse Ox O2 Delivery O2 Flow Rate FiO2 03/14/25 16:46 98.4 73 18 124/76 (92) 95 98.4 03/14/25 08:00 Room Air* 0 21 Intake and Output 03/13/25 03/14/25 19:00 07:00 Intake Total 900 ml 250 ml Balance 900 ml 250 ml Intake Oral 850 ml 250 ml IV Total 50 ml # Voids 3 3 # Bowel Movements 1 Physical Exam Vitals and nursing notes reviewed. General Appearance: In no acute distress HEENT: Atraumatic, PERRLA, EOMI, Mucous membr. moist/pink Respiratory: Clear to auscultation, Normal air movement Cardiovascular: Regular rate, Normal S1, Normal S2, No murmurs Abdominal: Normal bowel sounds, Soft, No tenderness, No hepatospenomegaly, No masses Extremities: No clubbing, No cyanosis, Normal pulses Skin: No significant lesion Neuro: At baseline. Normal speech Psych/Mental Status: Mental status NL, Mood NL Labs/Diagnostic Data Labs/Diagnostic Data Laboratory Tests Test 03/14/25 17:14 03/13/25 06:15 03/11/25 06:14 03/10/25 04:23 Range/Units Sodium Level 141 141 142 136-145 mmol/L Potassium Level 4.3 3.6 3.8 3.5-5.1 mmol/L Chloride Level 106 107 108 H 98-107 mmol/L Carbon Dioxide Level 25 26 26 20-31 mmol/L Anion Gap 10 8 8 5-15 Blood Urea Nitrogen 24 H 25 H 12 9-23 mg/dL Creatinine 1.31 H 1.45 #H 1.02 0.550-1.02 mg/dL Glomerular Filtration Rate Calc 42 37 56 >90 mL/min BUN/Creatinine Ratio 18.3 17.2 11.8 10.0-20.0 Serum Glucose 104 91 98 74-106 mg/dL Calcium Level 10.1 9.5 9.2 8.7-10.4 mg/dL White Blood Count 6.4 5.3 4.4-10.8 10^3/uL Red Blood Count 4.10 4.13 4.0-5.20 10^6/uL Hemoglobin 13.1 12.9 12.2-16.2 g/dL Hematocrit 39.7 39.9 36.0-46.0 % Mean Corpuscular Volume 96.7 96.6 80.0-100.0 fL Mean Corpuscular Hemoglobin 32.0 31.3 28.0-32.0 pg Mean Corpuscular Hemoglobin Concent 33.1 32.4 32.0-36.0 g/dL Red Cell Distribution Width 15.8 H 15.9 H 11.8-14.3 % Platelet Count 198 208 140-450 10^3/uL Mean Platelet Volume 8.4 8.3 6.9-10.8 fL Neutrophils (%) (Auto) 63.2 69.2 37.0-80.0 % Lymphocytes (%) (Auto) 23.8 18.5 10.0-50.0 % Monocytes (%) (Auto) 10.5 8.1 0.0-12.0 % Eosinophils (%) (Auto) 1.9 3.4 0.0-7.0 % Basophils (%) (Auto) 0.6 0.8 0.0-2.0 % Neutrophils # (Auto) 4.0 3.7 1.6-8.6 10 ^3/uL Lymphocytes # (Auto) 1.5 1.0 0.4-5.4 10 ^3/uL Monocytes # (Auto) 0.7 0.4 0-1.3 10 ^3/uL Eosinophils # (Auto) 0.1 0.2 0-0.8 10 ^3/uL Basophils # (Auto) 0 0 0-0.2 10 ^3/uL Nucleated Red Blood Cells 0.1 0.2 % Total Bilirubin 1.0 0.2-1.0 mg/dL Aspartate Amino Transferase (AST) 18 13-40 U/L Alanine Aminotransferase (ALT) 11 7-40 U/L Alkaline Phosphatase 58 46-116 U/L Total Protein 6.0 5.7-8.2 g/dL Albumin 4.1 3.2-4.8 g/dL Urine Color Yellow Yellow Urine Clarity Clear Clear Urine pH 6.0 5.0-9.0 Urine Specific [place] 1.031 1.001-1.035 Urine Protein Trace H Negative Urine Ketones Negative Negative Urine Blood Negative Negative /uL Urine Nitrite Negative Negative Urine Bilirubin Negative Negative Urine Urobilinogen Normal Negative mg/dL Urine Leukocyte Esterase 1+ Negative /uL Urine RBC 2 0 - 4 /hpf Urine Microscopic WBC 5 0-5 /HPF Urine Squamous Epithelial Cells Few <5 /hpf Urine Bacteria None seen None Seen /hpf Urine Hyaline Casts Few 0 - 2 /lpf Urine Mucus Few None Seen Urine Glucose Normal Normal mg/dL Urine Opiates Screen Neg NEGATIVE Urine Fentanyl Screen Neg NEGATIVE Urine Barbiturates Screen Neg NEGATIVE Urine Phencyclidine Screen Neg NEGATIVE Urine Amphetamines Screen Neg NEGATIVE Urine Benzodiazepines Screen Neg NEGATIVE Urine Cocaine Screen Neg NEGATIVE Urine Cannabinoids Screen Neg NEGATIVE Test 03/10/25 03:53 03/10/25 03:50 Range/Units White Blood Count 6.8 4.4-10.8 10^3/uL Red Blood Count 4.05 4.0-5.20 10^6/uL Hemoglobin 13.4 12.2-16.2 g/dL Hematocrit 39.2 36.0-46.0 % Mean Corpuscular Volume 96.8 80.0-100.0 fL Mean Corpuscular Hemoglobin 33.0 H 28.0-32.0 pg Mean Corpuscular Hemoglobin Concent 34.1 32.0-36.0 g/dL Red Cell Distribution Width 15.8 H 11.8-14.3 % Platelet Count 201 140-450 10^3/uL Mean Platelet Volume 8.1 6.9-10.8 fL Neutrophils (%) (Auto) 70.4 37.0-80.0 % Lymphocytes (%) (Auto) 19.3 10.0-50.0 % Monocytes (%) (Auto) 7.8 0.0-12.0 % Eosinophils (%) (Auto) 1.5 0.0-7.0 % Basophils (%) (Auto) 1.0 0.0-2.0 % Neutrophils # (Auto) 4.8 1.6-8.6 10 ^3/uL Lymphocytes # (Auto) 1.3 0.4-5.4 10 ^3/uL Monocytes # (Auto) 0.5 0-1.3 10 ^3/uL Eosinophils # (Auto) 0.1 0-0.8 10 ^3/uL Basophils # (Auto) 0.1 0-0.2 10 ^3/uL Nucleated Red Blood Cells 0.0 % Sodium Level 145 136-145 mmol/L Potassium Level 3.4 L 3.5-5.1 mmol/L Chloride Level 110 H 98-107 mmol/L Carbon Dioxide Level 25 20-31 mmol/L Anion Gap 10 5-15 Blood Urea Nitrogen 19 9-23 mg/dL Creatinine 1.23 H 0.550-1.02 mg/dL Glomerular Filtration Rate Calc 45 >90 mL/min BUN/Creatinine Ratio 15.4 10.0-20.0 Serum Glucose 97 74-106 mg/dL Lactic Acid Level 1.3 0.4-2.0 mmol/L Calcium Level 10.2 8.7-10.4 mg/dL Total Bilirubin 1.0 0.2-1.0 mg/dL Aspartate Amino Transferase (AST) 17 13-40 U/L Alanine Aminotransferase (ALT) 10 7-40 U/L Alkaline Phosphatase 65 46-116 U/L Troponin I High Sensitivity 4 </=34 ng/L B-Type Natriuretic Peptide 18.51 0-100 pg/mL Total Protein 6.9 5.7-8.2 g/dL Albumin 4.7 3.2-4.8 g/dL Thyroid Stimulating Hormone (TSH) 50.89 H 0.55-4.78 uIU/mL Plasma/Serum Blood Alcohol < 3.0 <10 mg/dL POC Glucose 88 70-106 mg/dl Assessment Left heel pain UTI Hypokalemia ROSALEE Hypertensive urgency History of Dementia Hypothyroidism Plan/Recommendation Agreement with your ongoing assessment and plan of care. Monitor daily labs to include renal function and electrolytes. Electrolyte replacement prn. 1L NS given in ED. IV antibiotics with Ceftriaxone. Levothyroxine 150 mcg oral daily. Pain management prn. Antiemetics with Zofran. GI/DVT prophylaxis. Additional plan as per the hospital course. Plan discussed with: Patient, Other (RN) TRUDY MURILLO DO Mar 13, 2025 18:38
[2025-03-14 01:00] VITALS: BP 159/88; PULSE 68; RESP 18; TEMP 98.3; O2SAT 95
[2025-03-14 05:00] VITALS: BP 159/91; PULSE 71; RESP 18; TEMP 97.9; O2SAT 96
[2025-03-14 08:00] VITALS: PULSE 71; RESP 18; O2SAT 97
[2025-03-14 09:00] VITALS: BP 120/77; PULSE 72; RESP 18; TEMP 98.4; O2SAT 97
--- NOTE | 2025-03-14 09:11 | DVH ---
EXAMINATION: MRI BRAIN HEAD WO CONTRAST INDICATION: Post fall COMPARISON: CT scan of the head dated 03/10/2025 TECHNIQUE: Multiplanar, multisequence magnetic resonance imaging of the brain was performed without the use of i ntravenous contrast. FINDINGS: No evidence of acute infarct. No intracranial hemorrhage. No mass effect. There is periventricular/deep white matter T2/FLAIR hyperintensity is nonspecific, but most commonly associated with chronic microvascular disease. The ventricles and sulci are normal in size for age. Clear basal cisterns. Flow voids in the major intracranial vessels are maintained. No abnormality of the orbits. Paranasal sinuses and mastoid air cells are clear. No abnormality of the visualized osseous structures and extracranial soft tissues. IMPRESSION: 1. No acute infarct, intracranial hemorrhage, mass effect, or hydrocephalus. 2. Periventricular and subcortical white matter disease, nonspecific but most commonly associated wit h sequelae of chronic microvascular ischemic changes, although other etiologies are not excluded.
[2025-03-14 13:00] VITALS: BP 109/68; PULSE 66; RESP 16; TEMP 98.8; O2SAT 96
[2025-03-14 16:46] VITALS: BP 124/76; PULSE 73; RESP 18; TEMP 98.4; O2SAT 95
[2025-03-14 18:10] LABS: Anion Gap 10 (5-15); Carbon Dioxide 25 mmol/L (20-31); Chloride 106 mmol/L (98-107); Potassium 4.3 mmol/L (3.5-5.1); Sodium 141 mmol/L (136-145)
[2025-03-14 18:12] LABS: Calcium 10.1 mg/dL (8.7-10.4)
[2025-03-14 18:16] LABS: Glucose 104 mg/dL (74-106)
[2025-03-14 18:17] LABS: BUN/Creatinine Ratio 18.3 (10.0-20.0)
[2025-03-14 18:27] LABS: Blood Urea Nitrogen 24 mg/dL (9-23)
--- NOTE | 2025-03-14 19:53 | DVHPN2 ---
Progress Note - Dictate Date Seen: Mar 14, 2025 Has the PT tested + for MRSA If YES, has PT been informed?: No Medical Necessity Reason Pt with a Central, PICC or Fol: No Subjective Patient was seen and evaluated in follow up. No acute events overnight. Sitter at bedside. Patient is A&Ox3. No new complaints. Creatinine decreased to 1.35. BUN of 24. Brain MRI reported no acute infarct, intracranial hemorrhage, mass effect, or hydrocephalus; periventricular and subcortical white matter disease, nonspecific but most commonly associated with sequelae of chronic microvascular ischemic changes, although other etiologies are not excluded. vital signs Vital Sign Date Time Temp Pulse Resp B/P (MAP) Pulse Ox O2 Delivery O2 Flow Rate FiO2 03/14/25 16:46 98.4 73 18 124/76 (92) 95 98.4 03/14/25 08:00 Room Air* 0 21 Total Intake and Output 03/13/25 03/13/25 03/14/25 15:00 23:00 07:00 Intake Total 350 ml 550 ml 250 ml Balance 350 ml 550 ml 250 ml medications Current Medications Medications Dose Ordered Sig/Bisi Route Start Time Stop Time Status Last Admin Dose Admin Ondansetron HCl 4 mg Q4HP PRN IV 03/10/25 06:45 Enoxaparin Sodium 40 mg DAILY SC 03/10/25 10:00 03/14/25 09:53 40 MG Ergocalciferol 50,000 unit QWEEKLY PO 03/10/25 07:00 Metoprolol Tartrate 25 mg BID PO 03/10/25 22:00 03/14/25 09:53 25 MG Amlodipine Besylate 10 mg DAILY PO 03/10/25 10:00 03/14/25 09:52 10 MG Citalopram Hydrobromide 20 mg DAILY PO 03/10/25 10:00 03/14/25 09:53 20 MG Pantoprazole Sodium 40 mg DAILY IV 03/10/25 10:00 03/14/25 09:52 40 MG Ceftriaxone Sodium 50 ml @ 100 mls/hr DAILY@09 IV 03/10/25 09:00 03/14/25 08:49 100 MLS/HR Levothyroxine Sodium 150 mcg QAM PO 03/11/25 06:30 03/14/25 06:35 150 MCG Pravastatin Sodium 20 mg HS PO 03/10/25 22:00 4/14/25 22:58 20 MG objective Vitals and nursing notes reviewed. General Appearance: In no acute distress HEENT: Atraumatic, PERRLA, EOMI, Mucous membr. moist/pink Respiratory: Clear to auscultation, Normal air movement Cardiovascular: Regular rate, Normal S1, Normal S2, No murmurs Abdominal: Normal bowel sounds, Soft, No tenderness, No hepatospenomegaly, No masses Extremities: No clubbing, No cyanosis, Normal pulses Skin: No significant lesion Neuro: At baseline. Normal speech Psych/Mental Status: Mental status NL, Mood NL laboratory and microbiology Laboratory Tests 03/14/25 17:14 03/13/25 06:15 Test 03/14/25 17:14 Range/Units Serum Glucose 104 74-106 mg/dL Problem List Left heel pain UTI Hypokalemia ROSALEE Hypertensive urgency History of Dementia Hypothyroidism Assessment/Plan Agree with current supportive medical care. Monitor daily labs to include renal function and electrolytes. Electrolyte replacement prn. IV antibiotics with Ceftriaxone. Levothyroxine 150 mcg oral daily. Pain management prn. Nutritional support. GI/DVT prophylaxis. Additional plan as per the hospital course. Dietary Evaluation Review Comments: 1. good PO intake, continue cardiac diet, cosult sweeper brush maker machine for evaluation 2.order lipid panel,, collect updated cholesterol level. Consider d/d Pravastatin if LDL is not high. Expected Outcomes/Goals: maintain wt. Plan discussed with: Patient, Other (RN) TRUDY MURILLO DO Mar 14, 2025 19:53
[2025-03-15 01:00] VITALS: BP 131/74; PULSE 62; RESP 17; TEMP 98.1; O2SAT 96
[2025-03-15 08:00] VITALS: PULSE 71; RESP 20; O2SAT 96
[2025-03-15 09:00] VITALS: BP 132/79; PULSE 71; RESP 20; TEMP 97.8; O2SAT 96
[2025-03-15] MEDS ORDERED: MORPHINE SULFATE INJ 2 MG/ml SYRG IV PRN (09:00)
[2025-03-15] MEDS: HYDROcodone-ACET 5/325MG TAB PO PRN (09:25)
--- NOTE | 2025-03-15 11:46 | DVHPN2 ---
Reviewed: Care Plan, H&P, Labs, Medications, Previous Orders, Radiology Changes from previous H/P or p: No Changes General: Per HPI Musculoskeletal: foot pain Objective Vitals Vital Signs Date Time Temp Pulse Resp B/P (MAP) Pulse Ox O2 Delivery O2 Flow Rate FiO2 03/15/25 09:32 132/79 03/15/25 09:32 71 03/15/25 09:00 97.8 20 96 97.8 03/15/25 08:00 Room Air* 0 21 Intake/Output Intake and Output 03/15/25 07:00 Intake Total 1460 ml Balance 1460 ml Intake Oral 1410 ml IV Total 50 ml # Voids 6 # Bowel Movements 1 General Appearance: Alert, mild distress HEENT: Atraumatic, PERRLA, EOMI, Mucous membr. moist/pink Neck: Supple Lungs: Clear to auscultation, Normal air movement Cardiovascular: Regular rate, Normal S1, Normal S2, No murmurs, Gallops, Rubs Abdomen: Normal bowel sounds, Soft, No tenderness Neuro: Cranial nerves 3-12 NL Psych/Mental Status: Mental status NL Medications Current Medications Medications Dose Ordered Sig/Bisi Route Start Time Stop Time Status Last Admin Dose Admin Ondansetron HCl 4 mg Q4HP PRN IV 03/10/25 06:45 Enoxaparin Sodium 40 mg DAILY SC 03/10/25 10:00 03/15/25 09:32 40 MG Ergocalciferol 50,000 unit QWEEKLY PO 03/10/25 07:00 Metoprolol Tartrate 25 mg BID PO 03/10/25 22:00 03/15/25 09:32 25 MG Amlodipine Besylate 10 mg DAILY PO 03/10/25 10:00 03/15/25 09:32 10 MG Citalopram Hydrobromide 20 mg DAILY PO 03/10/25 10:00 03/15/25 09:32 20 MG Pantoprazole Sodium 40 mg DAILY IV 03/10/25 10:00 03/15/25 09:31 40 MG Ceftriaxone Sodium 50 ml @ 100 mls/hr DAILY@09 IV 03/10/25 09:00 03/15/25 08:52 100 MLS/HR Levothyroxine Sodium 150 mcg QAM PO 03/11/25 06:30 03/15/25 07:27 150 MCG Pravastatin Sodium 20 mg HS PO 03/10/25 22:00 03/14/25 22:17 20 MG Acetaminophen/ Hydrocodone Bitart 1 tab Q6HPRN PRN PO 03/15/25 09:00 03/15/25 09:25 1 TAB Morphine Sulfate 1 mg Q2HP PRN IV 03/15/25 09:00 Laboratory Results Laboratory Tests 03/13/25 06:15 03/14/25 17:14 Chemistry Test 03/14/25 17:14 Calcium Level 10.1 mg/dL (8.7-10.4) Urinalysis Test 03/10/25 04:23 Urine Color Yellow (Yellow) Urine Clarity Clear (Clear) Urine pH 6.0 (5.0-9.0) Urine Specific [place] 1.031 (1.001-1.035) Urine Protein Trace (Negative) H Urine Ketones Negative (Negative) Urine Blood Negative /uL (Negative) Urine Nitrite Negative (Negative) Urine Bilirubin Negative (Negative) Urine Urobilinogen Normal mg/dL (Negative) Urine Leukocyte Esterase 1+ /uL (Negative) Urine RBC 2 /hpf (0 - 4) Urine Microscopic WBC 5 /HPF (0-5) Urine Squamous Epithelial Cells Few /hpf (<5) Urine Bacteria None seen /hpf (None Seen) Urine Hyaline Casts Few /lpf (0 - 2) Urine Mucus Few (None Seen) Urine Glucose Normal mg/dL (Normal) Assessment/Plan Assessment/Plan Acute encephalopathy Left heel pain UTI Hypokalemia ROSALEE Hypertensive urgency History of hypertension History of hyperlipidemia History of dementia History of hypothyroidism History of right hand surgery History of bilateral cataract surgery Continuing current management. Continuing with IV antibiotic Rocephin. Continuing IV fluid. Plan discussed with: Patient My Orders Orders - DELON HUFF DO Procedure Category Date Status Time Hydrocodone-Acet PHA 03/15/25 In Process 5/325mg Tab ([place]o 09:00 Morphine Sulfate PHA 03/15/25 In Process Injection 09:00 Date of Service: Mar 14, 2025 Billing Provider: DELON HUFF DO Common Visit Codes: [id number] INP/OBS CARE(HIGH) DELON HUFF DO Mar 15, 2025 11:46
[2025-03-15 12:11] VITALS: BP 132/79; PULSE 71; RESP 20; TEMP 97.8; O2SAT 96
[2025-03-15 13:00] VITALS: BP 124/68; PULSE 60; RESP 18; TEMP 99.2; O2SAT 95
--- NOTE | 2025-03-15 20:18 | DVHPN2 ---
Progress Note - Dictate Date Seen: Mar 15, 2025 Has the PT tested + for MRSA If YES, has PT been informed?: No Medical Necessity Reason Pt with a Central, PICC or Fol: No Subjective Patient was seen and evaluated in follow up. No acute events overnight. No new complaints. Renal function labs are stable. vital signs Vital Sign Date Time Temp Pulse Resp B/P (MAP) Pulse Ox O2 Delivery O2 Flow Rate FiO2 03/15/25 13:00 99.2 60 18 124/68 (86) 95 99.2 03/15/25 08:00 Room Air* 0 21 Total Intake and Output 03/14/25 03/14/25 03/15/25 14:59 22:59 06:59 Intake Total 50 ml 960 ml 450 ml Balance 50 ml 960 ml 450 ml objective Vitals and nursing notes reviewed. General Appearance: In no acute distress HEENT: Atraumatic, PERRLA, EOMI, Mucous membr. moist/pink Respiratory: Clear to auscultation, Normal air movement Cardiovascular: Regular rate, Normal S1, Normal S2, No murmurs Abdominal: Normal bowel sounds, Soft, No tenderness, No hepatospenomegaly, No masses Extremities: No clubbing, No cyanosis, Normal pulses Skin: No significant lesion Neuro: At baseline. Normal speech Psych/Mental Status: Mental status NL, Mood NL laboratory and microbiology Laboratory Tests 03/14/25 17:14 03/13/25 06:15 Test 03/14/25 17:14 Range/Units Serum Glucose 104 74-106 mg/dL Problem List Left heel pain UTI Hypokalemia ROSALEE Hypertensive urgency History of Dementia Hypothyroidism Assessment/Plan DC planning in progress. Cleared for discharge from Nephrology standpoint. Dietary Evaluation Review Comments: 1. good PO intake, continue cardiac diet, cosult assistant front end manager for evaluation 2.order lipid panel,, collect updated cholesterol level. Consider d/d Pravastatin if LDL is not high. Expected Outcomes/Goals: maintain wt. Plan discussed with: Patient, Other (RN) TRUDY MURILLO DO Mar 15, 2025 20:18
--- NOTE | 2025-03-20 13:06 | DVHDS2 ---
Discharge Summary Date of Admission Mar 10, 2025 at 07:03 Date of Discharge: Mar 15, 2025 Labs/Diagnostic Data: Laboratory Results Test 03/14/25 17:14 03/13/25 06:15 03/11/25 06:14 03/10/25 04:23 Sodium Level 141 mmol/L (136-145) Potassium Level 4.3 mmol/L (3.5-5.1) Chloride Level 106 mmol/L (98-107) Carbon Dioxide Level 25 mmol/L (20-31) Anion Gap 10 (5-15) Blood Urea Nitrogen 24 mg/dL (9-23) Creatinine 1.31 mg/dL (0.550-1.02) Glomerular Filtration Rate Calc 42 mL/min (>90) BUN/Creatinine Ratio 18.3 (10.0-20.0) Serum Glucose 104 mg/dL (74-106) Calcium Level 10.1 mg/dL (8.7-10.4) White Blood Count 6.4 10^3/uL (4.4-10.8) Red Blood Count 4.10 10^6/uL (4.0-5.20) Hemoglobin 13.1 g/dL (12.2-16.2) Hematocrit 39.7 % (36.0-46.0) Mean Corpuscular Volume 96.7 fL (80.0-100.0) Mean Corpuscular Hemoglobin 32.0 pg (28.0-32.0) Mean Corpuscular Hemoglobin Concent 33.1 g/dL (32.0-36.0) Red Cell Distribution Width 15.8 % (11.8-14.3) Platelet Count 198 10^3/uL (140-450) Mean Platelet Volume 8.4 fL (6.9-10.8) Neutrophils (%) (Auto) 63.2 % (37.0-80.0) Lymphocytes (%) (Auto) 23.8 % (10.0-50.0) Monocytes (%) (Auto) 10.5 % (0.0-12.0) Eosinophils (%) (Auto) 1.9 % (0.0-7.0) Basophils (%) (Auto) 0.6 % (0.0-2.0) Neutrophils # (Auto) 4.0 10 ^3/uL (1.6-8.6) Lymphocytes # (Auto) 1.5 10 ^3/uL (0.4-5.4) Monocytes # (Auto) 0.7 10 ^3/uL (0-1.3) Eosinophils # (Auto) 0.1 10 ^3/uL (0-0.8) Basophils # (Auto) 0 10 ^3/uL (0-0.2) Nucleated Red Blood Cells 0.1 % Total Bilirubin 1.0 mg/dL (0.2-1.0) Aspartate Amino Transferase (AST) 18 U/L (13-40) Alanine Aminotransferase (ALT) 11 U/L (7-40) Alkaline Phosphatase 58 U/L (46-116) Total Protein 6.0 g/dL (5.7-8.2) Albumin 4.1 g/dL (3.2-4.8) Urine Color Yellow (Yellow) Urine Clarity Clear (Clear) Urine pH 6.0 (5.0-9.0) Urine Specific [place] 1.031 (1.001-1.035) Urine Protein Trace (Negative) Urine Ketones Negative (Negative) Urine Blood Negative /uL (Negative) Urine Nitrite Negative (Negative) Urine Bilirubin Negative (Negative) Urine Urobilinogen Normal mg/dL (Negative) Urine Leukocyte Esterase 1+ /uL (Negative) Urine RBC 2 /hpf (0 - 4) Urine Microscopic WBC 5 /HPF (0-5) Urine Squamous Epithelial Cells Few /hpf (<5) Urine Bacteria None seen /hpf (None Seen) Urine Hyaline Casts Few /lpf (0 - 2) Urine Mucus Few (None Seen) Urine Glucose Normal mg/dL (Normal) Urine Opiates Screen Neg (NEGATIVE) Urine Fentanyl Screen Neg (NEGATIVE) Urine Barbiturates Screen Neg (NEGATIVE) Urine Phencyclidine Screen Neg (NEGATIVE) Urine Amphetamines Screen Neg (NEGATIVE) Urine Benzodiazepines Screen Neg (NEGATIVE) Urine Cocaine Screen Neg (NEGATIVE) Urine Cannabinoids Screen Neg (NEGATIVE) Test 03/10/25 03:53 03/10/25 03:50 Lactic Acid Level 1.3 mmol/L (0.4-2.0) Troponin I High Sensitivity 4 ng/L (</=34) B-Type Natriuretic Peptide 18.51 pg/mL (0-100) Thyroid Stimulating Hormone (TSH) 50.89 uIU/mL (0.55-4.78) Plasma/Serum Blood Alcohol < 3.0 mg/dL (<10) POC Glucose 88 mg/dl (70-106) Other Laboratory Tests 03/14/25 17:14 03/13/25 06:15 Brief Hx & Hospital Course: Acute encephalopathy Left heel pain UTI Hypokalemia ROSALEE Hypertensive urgency History of hypertension History of hyperlipidemia History of dementia History of hypothyroidism History of right hand surgery History of bilateral cataract surgery discharged to home Condition at Discharge: Fair Final Diagnosis/Problems List see above Discharge Disposition: Home Discharge Instruct/Medications Diet: Cardiac 2g Na,low cholest Activity: No Restrictions, As Tolerated Discharge Statement: "Patient was advised to return to the ER or call 911 if any headaches, dizziness, shortness of breath, chest pain, abdominal pain, bleeding, fevers, or worsening of medical condition. Patient was counseled about treatment plan, medications, possible side effects, patientverbalized understanding. All questions were answered to the best of my ability. This discharge took greater then 30 minutes in planning, reviewing documentation, counseling the patient, and discussing with other team members." ASSESSMENT ASSESSMENT Assessment Date of Service: Mar 15, 2025 Billing Provider: DELON HUFF DO Common Visit Codes: [id number] DISCH DAY >30min DELON HUFF DO Mar 20, 2025 13:06
== END 2025-03-15 15:20 | disposition home or self-care (01) | DRG 682 ==
LOC: EDBD 03:00 → ER 03:00 → OVERFLOW 07:03 → TELE-CENTR 22:06 → CENTRAL 03-11 16:03
PROVIDERS: ADMIT Internal Medicine; ATTEND Internal Medicine
DX: N17.9 Acute kidney failure, unspecified (principal); G93.41 Metabolic encephalopathy; N39.0 Urinary tract infection, site not specified; M79.672 Pain in left foot; I16.0 Hypertensive urgency; E87.6 Hypokalemia; I10 Essential (primary) hypertension; E78.5 Hyperlipidemia, unspecified; F03.90 Unspecified dementia, unspecified severity, without behavioral disturbance, psychotic disturbance, mood disturbance, and anxiety; E03.9 Hypothyroidism, unspecified; H66.91 Otitis media, unspecified, right ear; Z88.2 Allergy status to sulfonamides; Z98.42 Cataract extraction status, left eye; Z98.41 Cataract extraction status, right eye; Z79.899 Other long term (current) drug therapy
CPT/HCPCS: 36415; 70450; 70551; 71045; 73610; 73700; 80048; 80053; 80307; 80320; 81001; 82962; 83605; 83880; 84443; 84484; 85025; 93005; 96372; 96374; 96375; G0378; J2470